=== PATIENT | female | born 1955 | race Hispanic/Latino ===

== ENCOUNTER 2023-03-23 11:14 | Emergency (ER) | payer SELFPAY ==
--- OUTSIDE RECORDS SUMMARY | 2023-03-23 11:18 | XMS REPORT | Continuity of Care Document ---
:1955 Author Organization [facility] t Address [address] [place] [address] [address] [place] [address] Care Team Providers Name Role Phone LUIS DANIEL VELAZQUEZ Primary Care Physician Unavailable CHARLIE RAMIREZ Attending Clinician Unavailable CHARLIE RAMIREZ Attending Clinician Unavailable CHARLIE RAMIREZ Admitting Clinician Unavailable Payers Payer Name Policy Type Policy Number Effective Date Expiration Date S [facility] MEDICARE PART A [id number] 2019 \T\ B 00:00:00 Problems This patient has no known problems. Allergies, Adverse Reactions, Alerts Allergy Allergy Status Severity Reaction(s) Onset Inactive Treating Comm ents Source Name Type Date Date Clinician NO KNOWN Drug Active Univers [facility] Medications Ordered Filled Start Stop Current Ordering Indication Dosage Frequency Signature Comments Components Source Medication Medication Date Date Medication? Clinician (SIG) Name Name &lt 2021-0 No 5 7- 00:00: 00 Dose 2021-0 No 5 Unknown 03-21 00:00: 00 Dose 2021-0 No Unknown 7- 00:00: 00 Dose 2021-0 No Unknown 7- 00:00: 00 amlodipine 2021-0 No 1mg 5 mg tablet 02-21 00:00: 00 amlodipine 2021-0 No 1mg 5 mg tablet 02-21 00:00: 00 Vital Signs Vital Name Observation Time Observation Value Comments Source BP Systolic 2022-03-21 14:01:00 158 mm[Hg] BP Diastolic 2022-03-21 14:01:00 91 mm[Hg] Weight Measured 2022-03-21 14:01:00 218.20 pounds Height Measured 2022-03-21 14:01:00 62.00 inches Body Temperature 2022-03-21 14:01:00 98.50 degrees Heart Rate 2022-03-21 14:01:00 Respiratory Rate 2022-03-21 14:01:00 BP Systolic 2022-02-21 15:08:00 174 mm[Hg] BP Diastolic 2022-02-21 15:08:00 101 mm[Hg] Weight Measured 2022-02-21 15:08:00 217.80 pounds Height Measured 2022-02-21 15:08:00 62.00 inches Body Temperature 2022-02-21 15:08:00 98.60 degrees Heart Rate 2022-02-21 15:08:00 90.00 /min Respiratory Rate 2022-02-21 15:08:00 BP Systolic 2020-02-08 16:11:00 165 mm[Hg] BP Diastolic 2020-02-08 16:11:00 82 mm[Hg] Weight Measured 2020-02-08 16:11:00 216.00 pounds Height Measured 2020-02-08 16:11:00 62.00 inches Body Temperature 2020-02-08 16:11:00 98.60 degrees Heart Rate 2020-02-08 16:11:00 81.00 /min Respiratory Rate 2020-02-08 16:11:00 18.00 /min Procedures Procedure Date / Time Performed Performing Clinician Sourc e 11430 Ekg W/ At Least 12 Leads W/ I 2022-02-22 00:00:00 r Plan of Care Planned Activity Planned Date Details Comments Source Goal Plan of Care Note [code = 59262-0] Goal Plan of Care Note [code = 34325-5] Goal Plan of Care Note [code = 49672-3] Goal Plan of Care Note [code = 89063-2] Goal Plan of Care Note [code = 90310-7] Goal Plan of Care Note [code = 45104-4] Goal Plan of Care Note [code = 88274-0] Goal Plan of Care Note [code = 89300-6] Goal Plan of Care Note [code = 61825-8] Goal Plan of Care Note [code = 36481-4] Goal Plan of Care Note [code = 78135-2] Goal Plan of Care Note [code = 81330-3] Goal Plan of Care Note [code = 31478-9] Goal Plan of Care Note [code = 49333-3] Goal Plan of Care Note [code = 52667-6] Goal Plan of Care Note [code = 22059-4] Goal Plan of Care Note [code = 38599-2] Goal Plan of Care Note [code = 02823-8] Goal Plan of Care Note [code = 00947-0] Encounters Start End Encounter Admission Attending Care Care Encounter Source Date/Time Date/Time Type Type Clinicians Facility Department ID 2023-02-06 2023-02-06 Outpatient [facility] [id number] [place] 16:27:09 16:27:09 0614 F Kieran 2022-06-27 2022-06-27 Outpatient [facility] [id number] [place] 13:37:21 13:37:21 1102 F Kieran 2022-03-21 2022-03-21 Outpatient [id number] 00:00:00 00:00:00 Visit [id number] [id number] 2022-02-21 2022-02-21 Outpatient [id number] 00:00:00 00:00:00 Visit [id number] 1baccd 2020-01-23 2020-01-23 Emergency X CHARLIE RAMIREZ [facility] 1 [id number] [facility] 17:28:12 19:37:00 CHARLIE RAMIREZ [facility] Results Test Description Test Time Test Comments Results Result Comments Source HEMOGLOBIN A1c 2022-03-01 17:31:25 Test Item Value Reference Range Interpretation Comme nts HEMOGLOBIN A1c (test code = 5.7 % 4.2-5.6 H UNLESS OTHERWISE INDICATED, ALL 09907) TESTING PERFORM ED ATCLINICAL PATHOLOGY LAB[facility] [employer] [address] [place] [address] ORTHOPEDIC PHYSICIAN: BERNARD GALLEGOS M.D. CLIA NUMBER [id number] CAP ACCREDITATION N O. [id number] HEMOGLOBIN [id number] 00:00:00 Test Item Value Reference Range Interpretation Comments HEMOGLOBIN A1c (test code = 31094) 5.7 % HEMOGLOBIN [id number] 00:00:00 Test Item Value Reference Range Interpretation Comments HEMOGLOBIN A1c (test code = 06138) 5.7 % CBC W/AUTO DIFF WITH [id number] 08:05:55 Test Item Value Reference Range Interpretation Comments WBC (test code = 8.2 K/UL 3.5-11.0 1001) RBC (test code = 4.25 M/UL 3.80-5.40 1002) HEMOGLOBIN (test code 12.9 G/DL 11.5-15.5 = 1003) HEMATOCRIT (test code 39.2 % 34.0-45.0 = 1004) MCV (test code = 92.2 fL 80.0-99.0 1005) MCH (test code = 30.4 PG 25.0-33.0 1006) MCHC (test code = 32.9 G/DL 31.0-36.0 1007) RDW (test code = 14.0 % 11.5-15.0 1038) NEUTROPHILS (test 53.9 % code = 1008) LYMPHOCYTES (test 35.8 % code = 1010) MONOCYTES (test code 7.7 % = 1011) EOSINOPHILS (test 1.8 % code = 1012) BASOPHILS (test code 0.6 % = 1013) IMMATURE GRANULOCYTES 0.2 % (test code = 1036) NUCLEATED RBCS (test 0.0 /100 WBC'S See_Comment [Aut omated code = 1065) message] The sy stem which generated this result transmitted reference range : 0.0. The refere nce range was not u sed to interpret th is result as normal/abnormal . PLATELET COUNT (test 205 K/UL 130-400 code = 1015) ABSOLUTE NEUTROPHILS 4.41 K/UL 1.50-7.50 (test code = 1066) ABSOLUTE LYMPHOCYTES 2.93 K/UL 1.00-4.00 (test code = 1067) ABSOLUTE MONOCYTES 0.63 K/UL 0.20-1.00 (test code = 1068) ABSOLUTE EOSINOPHILS 0.15 K/UL 0.00-0.50 (test code = 1040) ABSOLUTE BASOPHILS 0.05 K/UL 0.00-0.20 (test code = 1069) ABS IMMATURE 0.02 K/UL 0.00-0.10 GRANULOCYTES (test code = 1020) ABS NUCLEATED RBCS 0.00 K/UL 0.00-0.11 (test code = 19557) LIPID [id number] 05:47:52 Test Item Value Reference Range Interpretation Comments CHOLESTEROL (test 210 MG/DL <200 H code = 2210) TRIGLYCERIDES (test 120 MG/DL <150 code = 2232) HDL CHOLESTEROL (test 45 MG/DL >39 code = 2220) CALC LDL CHOL (test 141 MG/DL <100 H NOTE: C ALCULATED LDL code = 2237) IS BASED ON PADMINI-WEEKS METHOD WHICHINCLUDES ADJUSTABLE TRIGLYCERIDE:VL DL CHOLESTEROL RAT IO.THIS FACTOR VARIES B Y MEASURED TRIGLY CERIDE AND NON-HDLCHOL ESTEROL CONCENTRATIONS WITH INCREASED CALCU LATED LDL SEENIN HIGH ER TRIGLYCERIDE OR LOWER NON-HDL SPECIME NS. FOR MOREINFORMATION , SEE CLIENT ANNOUNCE MENT AT [email or web address] RISK RATIO LDL/HDL 3.13 RATIO <3.22 (test code = 2238) COMPREHENSIVE METABOLIC [id number] 05:47:52 Test Item Value Reference Range Interpretation Comments GLUCOSE (test code = 111 MG/DL 70-99 H 2216) BUN (test code = 17 MG/DL 8-23 2207) CREATININE (test 0.87 MG/DL 0.60-1.30 code = 2214) eGFR (2020 CKD-EPI) 73 >60 (test code = 00027) ML/MIN/1.73 CALC BUN/CREAT (test 20 RATIO 6-28 code = 2235) SODIUM (test code = 143 MEQ/L 990-485 1733) POTASSIUM (test code 4.1 MEQ/L 3.5-5.4 = 2227) CHLORIDE (test code 105 MEQ/L 95-107 = 221) CARBON DIOXIDE (test 27 MEQ/L 19-31 code = 2206) CALCIUM (test code = 9.5 MG/DL 8.5-10.5 2208) PROTEIN, TOTAL (test 6.9 G/DL 6.1-8.3 code = 2229) ALBUMIN (test code = 4.1 G/DL 3.5-5.2 2200) CALC GLOBULIN (test 2.8 G/DL 1.9-3.7 code = 2240) CALC A/G RATIO (test 1.5 RATIO 1.0-2.6 code = 2234) BILIRUBIN, TOTAL <0.2 MG/DL See_Comment [Automated message] (test code = 2207) The syste m which generated this result transmitted ref erence range: <=1.2. T he reference range was not used to int erpret this result as normal/abnormal . ALKALINE PHOSPHATASE 87 U/L 40-142 (test code = 2204) AST (test code = 18 U/L 9-40 2218) ALT (test code = 27 U/L 5-40 UNLESS OTH ERWISE 2219) INDICATED, ALL TESTING PERFORM ED [facility], [facility] [address] [place] [id number] [place] [address] DIRECTOR: BERNARD GALLEGOS M.D. CLIA NUMBER [id number] CAP ACCREDITATION N O. [id number] CBC W/AUTO [id number] 00:00:00 Test Item Value Reference Range Interpretation Comments WBC (test code = 1001) 8.2 K/UL RBC (test code = 1002) 4.25 M/UL HEMOGLOBIN (test code = 1003) 12.9 G/DL HEMATOCRIT (test code = 1004) 39.2 % MCV (test code = 1005) 92.2 fL MCH (test code = 1006) 30.4 PG MCHC (test code = 1007) 32.9 G/DL RDW (test code = 1038) 14.0 % NEUTROPHILS (test code = 1008) 53.9 % LYMPHOCYTES (test code = 1010) 35.8 % MONOCYTES (test code = 1011) 7.7 % EOSINOPHILS (test code = 1012) 1.8 % BASOPHILS (test code = 1013) 0.6 % IMMATURE GRANULOCYTES (test 0.2 % code = 1036) NUCLEATED RBCS (test code = 0.0 /100WBC'S 1065) PLATELET COUNT (test code = 205 K/UL 1015) ABSOLUTE NEUTROPHILS (test code 4.41 K/UL = 1066) ABSOLUTE LYMPHOCYTES (test code 2.93 K/UL = 1067) ABSOLUTE MONOCYTES (test code = 0.63 K/UL 1068) ABSOLUTE EOSINOPHILS (test code 0.15 K/UL = 1040) ABSOLUTE BASOPHILS (test code = 0.05 K/UL 1069) ABS IMMATURE GRANULOCYTES (test 0.02 K/UL code = 1020) ABS NUCLEATED RBCS (test code = 0.00 K/UL 61180) LIPID [id number] 00:00:00 Test Item Value Reference Range Interpretation Comments CHOLESTEROL (test code = 2210) 210 MG/DL TRIGLYCERIDES (test code = 2232) 120 MG/DL HDL CHOLESTEROL (test code = 2220) 45 MG/DL CALC LDL CHOL (test code = 2237) 141 MG/DL RISK RATIO LDL/HDL (test code = 3.13 RATIO 2238) COMPREHENSIVE METABOLIC [id number] 00:00:00 Test Item Value Reference Range Interpretation Comments GLUCOSE (test code = 2217) 111 MG/DL BUN (test code = 2208) 17 MG/DL CREATININE (test code = 2214) 0.87 MG/DL eGFR (2020 CKD-EPI) (test code 73 ML/MIN/1.73 = 59818) CALC BUN/CREAT (test code = 20 RATIO 2235) SODIUM (test code = 2231) 143 MEQ/L POTASSIUM (test code = 2228) 4.1 MEQ/L CHLORIDE (test code = 2215) 105 MEQ/L CARBON DIOXIDE (test code = 27 MEQ/L 2205) CALCIUM (test code = 2209) 9.5 MG/DL PROTEIN, TOTAL (test code = 6.9 G/DL 2228) ALBUMIN (test code = 2201) 4.1 G/DL CALC GLOBULIN (test code = 2.8 G/DL 0) CALC A/G RATIO (test code = 1.5 RATIO 4) BILIRUBIN, TOTAL (test code = <0.2 MG/DL 2206) ALKALINE PHOSPHATASE (test 87 U/L code = 2204) AST (test code = 2218) 18 U/L ALT (test code = 2219) 27 U/L CBC W/AUTO [id number] 00:00:00 Test Item Value Reference Range Interpretation Comments WBC (test code = 1001) 8.2 K/UL RBC (test code = 1002) 4.25 M/UL HEMOGLOBIN (test code = 1003) 12.9 G/DL HEMATOCRIT (test code = 1004) 39.2 % MCV (test code = 1005) 92.2 fL MCH (test code = 1006) 30.4 PG MCHC (test code = 1007) 32.9 G/DL RDW (test code = 1038) 14.0 % NEUTROPHILS (test code = 1008) 53.9 % LYMPHOCYTES (test code = 1010) 35.8 % MONOCYTES (test code = 1011) 7.7 % EOSINOPHILS (test code = 1012) 1.8 % BASOPHILS (test code = 1013) 0.6 % IMMATURE GRANULOCYTES (test 0.2 % code = 1036) NUCLEATED RBCS (test code = 0.0 /100WBC'S 1065) PLATELET COUNT (test code = 205 K/UL 1015) ABSOLUTE NEUTROPHILS (test code 4.41 K/UL = 1066) ABSOLUTE LYMPHOCYTES (test code 2.93 K/UL = 1067) ABSOLUTE MONOCYTES (test code = 0.63 K/UL 1068) ABSOLUTE EOSINOPHILS (test code 0.15 K/UL = 1040) ABSOLUTE BASOPHILS (test code = 0.05 K/UL 1069) ABS IMMATURE GRANULOCYTES (test 0.02 K/UL code = 1020) ABS NUCLEATED RBCS (test code = 0.00 K/UL 39743) CBC W/AUTO [id number] 00:00:00 Test Item Value Reference Range Interpretation Comments WBC (test code = 1001) 8.2 K/UL RBC (test code = 1002) 4.25 M/UL HEMOGLOBIN (test code = 1003) 12.9 G/DL HEMATOCRIT (test code = 1004) 39.2 % MCV (test code = 1005) 92.2 fL MCH (test code = 1006) 30.4 PG MCHC (test code = 1007) 32.9 G/DL RDW (test code = 1038) 14.0 % NEUTROPHILS (test code = 1008) 53.9 % LYMPHOCYTES (test code = 1010) 35.8 % MONOCYTES (test code = 1011) 7.7 % EOSINOPHILS (test code = 1012) 1.8 % BASOPHILS (test code = 1013) 0.6 % IMMATURE GRANULOCYTES (test 0.2 % code = 1036) NUCLEATED RBCS (test code = 0.0 /100WBC'S 1065) PLATELET COUNT (test code = 205 K/UL 1015) ABSOLUTE NEUTROPHILS (test code 4.41 K/UL = 1066) ABSOLUTE LYMPHOCYTES (test code 2.93 K/UL = 1067) ABSOLUTE MONOCYTES (test code = 0.63 K/UL 1068) ABSOLUTE EOSINOPHILS (test code 0.15 K/UL = 1040) ABSOLUTE BASOPHILS (test code = 0.05 K/UL 1069) ABS IMMATURE GRANULOCYTES (test 0.02 K/UL code = 1020) ABS NUCLEATED RBCS (test code = 0.00 K/UL 31065) LIPID [id number] 00:00:00 Test Item Value Reference Range Interpretation Comments CHOLESTEROL (test code = 2210) 210 MG/DL TRIGLYCERIDES (test code = 2232) 120 MG/DL HDL CHOLESTEROL (test code = 2220) 45 MG/DL CALC LDL CHOL (test code = 2237) 141 MG/DL RISK RATIO LDL/HDL (test code = 3.13 RATIO 2238) COMPREHENSIVE METABOLIC [id number] 00:00:00 Test Item Value Reference Range Interpretation Comments GLUCOSE (test code = 2217) 111 MG/DL BUN (test code = 2208) 17 MG/DL CREATININE (test code = 2214) 0.87 MG/DL eGFR (2020 CKD-EPI) (test code 73 ML/MIN/1.73 = 28410) CALC BUN/CREAT (test code = 20 RATIO 2235) SODIUM (test code = 2231) 143 MEQ/L POTASSIUM (test code = 2228) 4.1 MEQ/L CHLORIDE (test code = 2215) 105 MEQ/L CARBON DIOXIDE (test code = 27 MEQ/L 2205) CALCIUM (test code = 2209) 9.5 MG/DL PROTEIN, TOTAL (test code = 6.9 G/DL 2228) ALBUMIN (test code = 2201) 4.1 G/DL CALC GLOBULIN (test code = 2.8 G/DL 2240) CALC A/G RATIO (test code = 1.5 RATIO 2234) BILIRUBIN, TOTAL (test code = <0.2 MG/DL 2206) ALKALINE PHOSPHATASE (test 87 U/L code = 2204) AST (test code = 2218) 18 U/L ALT (test code = 2219) 27 U/L CBC W/AUTO [id number] 00:00:00 Test Item Value Reference Range Interpretation Comments WBC (test code = 1001) 8.2 K/UL RBC (test code = 1002) 4.25 M/UL HEMOGLOBIN (test code = 1003) 12.9 G/DL HEMATOCRIT (test code = 1004) 39.2 % MCV (test code = 1005) 92.2 fL MCH (test code = 1006) 30.4 PG MCHC (test code = 1007) 32.9 G/DL RDW (test code = 1038) 14.0 % NEUTROPHILS (test code = 1008) 53.9 % LYMPHOCYTES (test code = 1010) 35.8 % MONOCYTES (test code = 1011) 7.7 % EOSINOPHILS (test code = 1012) 1.8 % BASOPHILS (test code = 1013) 0.6 % IMMATURE GRANULOCYTES (test 0.2 % code = 1036) NUCLEATED RBCS (test code = 0.0 /100WBC'S 1065) PLATELET COUNT (test code = 205 K/UL 1015) ABSOLUTE NEUTROPHILS (test code 4.41 K/UL = 1066) ABSOLUTE LYMPHOCYTES (test code 2.93 K/UL = 1067) ABSOLUTE MONOCYTES (test code = 0.63 K/UL 1068) ABSOLUTE EOSINOPHILS (test code 0.15 K/UL = 1040) ABSOLUTE BASOPHILS (test code = 0.05 K/UL 1069) ABS IMMATURE GRANULOCYTES (test 0.02 K/UL code = 1020) ABS NUCLEATED RBCS (test code = 0.00 K/UL 85829) HEMOGLOBIN [id number] 00:00:00 Test Item Value Reference Range Interpretation Comments HEMOGLOBIN A1c (test code = 23706) 5.4 % HEMOGLOBIN [id number] 00:00:00 Test Item Value Reference Range Interpretation Comments HEMOGLOBIN A1c (test code = 66043) 5.4 % HEMOGLOBIN [id number] 00:00:00 Test Item Value Reference Range Interpretation Comments HEMOGLOBIN A1c (test code = 99747) 5.4 % HEMOGLOBIN [id number] 00:00:00 Test Item Value Reference Range Interpretation Comments HEMOGLOBIN A1c (test code = 24573) 5.4 % COMPREHENSIVE METABOLIC [id number] 00:00:00 Test Item Value Reference Range Interpretation Comments GLUCOSE (test code = 2217) 109 MG/DL BUN (test code = 2208) 12 MG/DL CREATININE (test code = 2214) 0.84 MG/DL eGFR AMER. (test code 85 ML/MIN/1.73 = 03671) eGFR NON- AMER. (test 73 ML/MIN/1.73 code = 41122) CALC BUN/CREAT (test code = 14 RATIO 2234) SODIUM (test code = 2231) 140 MEQ/L POTASSIUM (test code = 2228) 4.3 MEQ/L CHLORIDE (test code = 2215) 105 MEQ/L CARBON DIOXIDE (test code = 24 MEQ/L 2205) CALCIUM (test code = 2209) 8.9 MG/DL PROTEIN, TOTAL (test code = 7.2 G/DL 2228) ALBUMIN (test code = 2201) 4.4 G/DL CALC GLOBULIN (test code = 2.8 G/DL 2239) CALC A/G RATIO (test code = 1.6 RATIO 2233) BILIRUBIN, TOTAL (test code = 0.2 MG/DL 2206) ALKALINE PHOSPHATASE (test 94 U/L code = 220) AST (test code = 2218) 20 U/L ALT (test code = 2219) 27 U/L CBC W/AUTO [id number] 00:00:00 Test Item Value Reference Range Interpretation Comments WBC (test code = 1001) 6.7 K/UL RBC (test code = 1002) 4.22 M/UL HEMOGLOBIN (test code = 1003) 13.5 G/DL HEMATOCRIT (test code = 1004) 38.9 % MCV (test code = 1005) 92.2 fL MCH (test code = 1006) 32.0 PG MCHC (test code = 1007) 34.7 G/DL RDW (test code = 1038) 13.4 % NEUTROPHILS (test code = 1008) 60.3 % LYMPHOCYTES (test code = 1010) 29.3 % MONOCYTES (test code = 1011) 7.5 % EOSINOPHILS (test code = 1012) 2.3 % BASOPHILS (test code = 1013) 0.6 % PLATELET COUNT (test code = 1015) 212 K/UL CBC W/AUTO [id number] 00:00:00 Test Item Value Reference Range Interpretation Comments WBC (test code = 1001) 6.7 K/UL RBC (test code = 1002) 4.22 M/UL HEMOGLOBIN (test code = 1003) 13.5 G/DL HEMATOCRIT (test code = 1004) 38.9 % MCV (test code = 1005) 92.2 fL MCH (test code = 1006) 32.0 PG MCHC (test code = 1007) 34.7 G/DL RDW (test code = 1038) 13.4 % NEUTROPHILS (test code = 1008) 60.3 % LYMPHOCYTES (test code = 1010) 29.3 % MONOCYTES (test code = 1011) 7.5 % EOSINOPHILS (test code = 1012) 2.3 % BASOPHILS (test code = 1013) 0.6 % PLATELET COUNT (test code = 1015) 212 K/UL CBC W/AUTO [id number] 00:00:00 Test Item Value Reference Range Interpretation Comments WBC (test code = 1001) 6.7 K/UL RBC (test code = 1002) 4.22 M/UL HEMOGLOBIN (test code = 1003) 13.5 G/DL HEMATOCRIT (test code = 1004) 38.9 % MCV (test code = 1005) 92.2 fL MCH (test code = 1006) 32.0 PG MCHC (test code = 1007) 34.7 G/DL RDW (test code = 1038) 13.4 % NEUTROPHILS (test code = 1008) 60.3 % LYMPHOCYTES (test code = 1010) 29.3 % MONOCYTES (test code = 1011) 7.5 % EOSINOPHILS (test code = 1012) 2.3 % BASOPHILS (test code = 1013) 0.6 % PLATELET COUNT (test code = 1015) 212 K/UL COMPREHENSIVE METABOLIC [id number] 00:00:00 Test Item Value Reference Range Interpretation Comments GLUCOSE (test code = 2217) 109 MG/DL BUN (test code = 2208) 12 MG/DL CREATININE (test code = 2214) 0.84 MG/DL eGFR AMER. (test code 85 ML/MIN/1.73 = 54946) eGFR NON- AMER. (test 73 ML/MIN/1.73 code = 93241) CALC BUN/CREAT (test code = 14 RATIO 2235) SODIUM (test code = 2231) 140 MEQ/L POTASSIUM (test code = 2228) 4.3 MEQ/L CHLORIDE (test code = 2215) 105 MEQ/L CARBON DIOXIDE (test code = 24 MEQ/L 2205) CALCIUM (test code = 2209) 8.9 MG/DL PROTEIN, TOTAL (test code = 7.2 G/DL 2229) ALBUMIN (test code = 2201) 4.4 G/DL CALC GLOBULIN (test code = 2.8 G/DL 2240) CALC A/G RATIO (test code = 1.6 RATIO 4) BILIRUBIN, TOTAL (test code = 0.2 MG/DL 2206) ALKALINE PHOSPHATASE (test 94 U/L code = 2204) AST (test code = 2218) 20 U/L ALT (test code = 2219) 27 U/L CBC W/AUTO [id number] 00:00:00 Test Item Value Reference Range Interpretation Comments WBC (test code = 1001) 6.7 K/UL RBC (test code = 1002) 4.22 M/UL HEMOGLOBIN (test code = 1003) 13.5 G/DL HEMATOCRIT (test code = 1004) 38.9 % MCV (test code = 1005) 92.2 fL MCH (test code = 1006) 32.0 PG MCHC (test code = 1007) 34.7 G/DL RDW (test code = 1038) 13.4 % NEUTROPHILS (test code = 1008) 60.3 % LYMPHOCYTES (test code = 1010) 29.3 % MONOCYTES (test code = 1011) 7.5 % EOSINOPHILS (test code = 1012) 2.3 % BASOPHILS (test code = 1013) 0.6 % PLATELET COUNT (test code = 1015) 212 K/UL
[2023-03-23] MEDS ORDERED: ONDANSETRON 4 MG (ODT) TAB ONE (12:29)
--- NOTE | 2023-03-23 13:28 | RAD REPORT ---
EXAM DESCRIPTION: RAD - Abdomen 1 View (KUB) - 03/23/2023 1:19 pm CLINICAL HISTORY: CONSTIPATION Pain COMPARISON: No comparisons FINDINGS: The bowel gas pattern is non-obstructive. No evidence of free air or pneumatosis. No suspi cious calcifications. No significant bony findings. Cholecystectomy. Moderate constipation. IMPRESSION: Moderate constipation.
[2023-03-23] MEDS ORDERED: MAGNESIUM CITRATE 300 ML BOT ONE (14:07)
[2023-03-23] MEDS ORDERED: FLEET ENEMA ADULT PR ONE (15:53)
--- NOTE | 2023-03-23 16:13 | EDPHYS ---
Physician Documentation [facility] Name: Licha Shultz Age: 67 yrs Sex: Female : 1955 Arrival Date: 03/23/2023 Time: 11:14 Bed 4 Private MD: ED Physician Jasbir Vazquez HPI: 03/23 11:30 This 67 yrs old Female presents to ER via Ambulatory with complaints of aj3 Constipation. 11:30 Patient reports having constipation intermittently over the last 2 weeks. She reports aj3 that she has had small hard stools coming out but she feels like she has impacted. She recently started taking stool softener yesterday but has not had any relief yet. She does report some nausea but denies any vomiting, fever, chills, shortness of breath or urinary symptoms.. Historical: - Allergies: 11:25 No Known Allergies; ll1 - PMHx: 11:25 Diabetes mellitus; Borderline (no meds); ll1 - PSHx: 11:25 Cholecystectomy; Tonsillectomy; ll1 - Immunization history:: Client reports having NOT received the Covid vaccine. - Social history:: Smoking status: Patient denies any tobacco usage or history of. ROS: 11:30 Constitutional: Negative for fever, chills, and weight loss, Cardiovascular: Negative aj3 for chest pain, palpitations, and edema, Respiratory: Negative for shortness of breath, cough, wheezing, and pleuritic chest pain, MS/Extremity: Negative for injury and deformity, Skin: Negative for injury, rash, and discoloration, Neuro: Negative for syncope, headache, weakness, numbness, tingling, and seizure. 11:30 Abdomen/GI: Positive for nausea, constipation, black/tarry stool, rectal bleeding. Exam: 11:30 Constitutional: This is a well developed, well nourished patient who is awake, alert, aj3 and in no acute distress. Cardiovascular: Regular rate and rhythm with a normal S1 and S2. No gallops, murmurs, or rubs. Normal PMI, no JVD. No pulse deficits. Respiratory: Lungs have equal breath sounds bilaterally, clear to auscultation and percussion. No rales, rhonchi or wheezes noted. No increased work of breathing, no retractions or nasal flaring. Abdomen/GI: Soft, non-tender, with normal bowel sounds. No distension or tympany. No guarding or rebound. No evidence of tenderness throughout. Skin: Warm, dry with normal turgor. Normal color with no rashes, no lesions, and no evidence of cellulitis. MS/ Extremity: Pulses equal, no cyanosis. Neurovascular intact. Full, normal range of motion. Neuro: Awake and alert, GCS 15, oriented to person, place, time, and situation. Motor strength 5/5 in all extremities. Sensory grossly intact. Normal gait. Vital Signs: 11:26 BP 196 / 93; Pulse 77; Resp 18; Temp 98; Pulse Ox 98% on R/A; Height 5 ft. 2 in. ; Pain ll1 2/10; 14:03 BP 168 / 86; Pulse 76; Resp 15; Pulse Ox 99% ; hb 16:00 BP 156 / 82; Pulse 77; Resp 15; Pulse Ox 99% ; hb 11:26 Pain Scale: Adult ll1 MDM: 11:30 Differential diagnosis: Constipation, fecal impaction, bowel obstruction. Data aj3 reviewed: vital signs, nurses notes, radiologic studies, plain films. Independent interpretation of the following test(s) in the Emergency Department X-Ray: My interpretation is No bowel obstruction noted. Test considered but Not performed: Labs: Labs not warranted today.. Historians other than the Patient: Daughter/Son: . Counseling: I had a detailed discussion with the patient and/or guardian regarding: the historical points, exam findings, and any diagnostic results supporting the discharge/admit diagnosis, radiology results, the need for outpatient follow up, to return to the emergency department if symptoms worsen or persist or if there are any questions or concerns that arise at home. ED course: Patient here with constipation for the past 2 weeks. X-ray was negative for bowel obstruction or concern for fecal impaction. She was given mag citrate and enema with minimal relief. We will discharge her home with lactulose and have her follow-up with PCP and/or director staffing. ER return precautions given. 12:02 Patient medically screened. aj3 03/23 12:12 Order name: Abdomen 1 View (KUB) XRAY; Complete Time: 13:43 aj3 Administered Medications: 14:01 Drug: Magnesium Citrate PO Liquid 300 ml Route: PO; hb 17:32 Follow up: Response: No adverse reaction hb 16:07 Drug: Fleet Enema [place] 133 ml Route: [place]; hb 17:31 Follow up: Response: No adverse reaction hb 17:32 Not Given (Patient Refused): Ondansetron PO 4 mg PO once hb Disposition: 03/24 13:37 Co-signature as Attending Physician, Jasbir Vazquez DO I was immediately available on-site ms3 in the Emergency Department for consultation in the care of the patient. Disposition Summary: 03/23/23 16:12 Discharge Ordered Location: Home aj3 Problem: new aj3 Symptoms: have improved aj3 Condition: Stable aj3 Diagnosis - Constipation, unspecified aj3 Followup: aj3 - With: Emergency Department - When: - Reason: Worsening of condition Followup: aj3 - With: Private Physician - When: - Reason: Recheck today's complaints, Re-evaluation by your physician Discharge Instructions: - Discharge Summary Sheet aj3 - Constipation, Adult aj3 Forms: - Medication Reconciliation Form aj3 - Thank You Letter aj3 - Antibiotic Education aj3 - Prescription Opioid Use aj3 - Patient Portal Instructions aj3 Prescriptions: - Lactulose 10 gram/15 mL Oral Solution - take 30 milliliters by ORAL route once daily; 300 milliliter; Refills: 0, aj3 Product Selection Permitted Signatures: Dispatcher [employer] Ronit Patel RN Paul Arevalo RN RN ll1 Jasbir Vazquez DO DO ms3 Nicole Rossi, [employer] aj3
--- NOTE | 2023-03-23 16:13 | ER ---
Nurse's Notes [facility] Name: Licha Shultz Age: 67 yrs Sex: Female : 1955 Arrival Date: 03/23/2023 Time: 11:14 Bed 4 Private MD: Diagnosis: Constipation, unspecified Presentation: 03/23 11:26 Chief complaint: Patient states: Constipation since 03/02/23. + abdominal discomfort. ll1 Took a laxative yesterday. No known fevers. Coronavirus screen: Vaccine status: Patient reports being unvaccinated. Client denies travel out of the [place] in the last 14 days. At this time, the client does not indicate any symptoms associated with coronavirus-19. Ebola Screen: Patient denies travel to an Ebola-affected area in the 21 days before illness onset. Initial Sepsis Screen: Does the patient meet any 2 criteria? No. Patient's initial sepsis screen is negative. Does the patient have a suspected source of infection? Yes: Acute abdominal pain. Risk Assessment: Do you want to hurt yourself or someone else? Patient reports no desire to harm self or others. Onset of symptoms was March 02, 2023. 11:26 Method Of Arrival: Ambulatory ll1 11:26 Acuity: EDGAR 3 ll1 Triage Assessment: 11:28 General: Appears uncomfortable, Behavior is calm, cooperative, appropriate for age. ll1 Pain: Complains of pain in abdomen Pain currently is 2 out of 10 on a pain scale. Quality of pain is described as aching, tender. GI: Reports lower abdominal pain, upper abdominal pain, bloating, constipation, cramping. Historical: - Allergies: 11:25 No Known Allergies; ll1 - PMHx: 11:25 Diabetes mellitus; Borderline (no meds); ll1 - PSHx: 11:25 Cholecystectomy; Tonsillectomy; ll1 - Immunization history:: Client reports having NOT received the Covid vaccine. - Social history:: Smoking status: Patient denies any tobacco usage or history of. Screenin:11 [facility] ED Fall Risk Assessment (Adult) Score/Fall Risk Level 0 - 2 = Low Risk. Abuse me1 screen: Denies threats or abuse. Nutritional screening: No deficits noted. Tuberculosis screening: No symptoms or risk factors identified. Assessment: 13:11 General: Appears in no apparent distress. comfortable, obese, well groomed, well me1 developed, Behavior is calm, cooperative, appropriate for age, Denies fever, feeling ill, fatigue, chills. Pain: Denies pain. Neuro: Level of Consciousness is Oriented to person, place, time, situation. Cardiovascular: Capillary refill < 3 seconds is brisk fingers toes Patient's skin is warm and dry. Respiratory: Respiratory effort is even, unlabored, Respiratory pattern is regular, symmetrical. GI: Reports constipation. :. 14:02 Reassessment: Patient appears in no apparent distress at this time. Patient and/or hb family updated on plan of care and expected duration. Pain level reassessed. Patient is alert, oriented x 3, equal unlabored respirations, skin warm/dry/pink. 14:50 Reassessment: Patient appears in no apparent distress at this time. Patient and/or hb family updated on plan of care and expected duration. Pain level reassessed. Patient is alert, oriented x 3, equal unlabored respirations, skin warm/dry/pink. 16:00 Reassessment: Patient appears in no apparent distress at this time. Patient and/or hb family updated on plan of care and expected duration. Pain level reassessed. Patient is alert, oriented x 3, equal unlabored respirations, skin warm/dry/pink. 17:00 Reassessment: Patient appears in no apparent distress at this time. Patient and/or hb family updated on plan of care and expected duration. Pain level reassessed. Patient is alert, oriented x 3, equal unlabored respirations, skin warm/dry/pink. Vital Signs: 11:26 BP 196 / 93; Pulse 77; Resp 18; Temp 98; Pulse Ox 98% on R/A; Height 5 ft. 2 in. ; Pain ll1 2/10; 14:03 BP 168 / 86; Pulse 76; Resp 15; Pulse Ox 99% ; hb 16:00 BP 156 / 82; Pulse 77; Resp 15; Pulse Ox 99% ; hb 11:26 Pain Scale: Adult ll1 ED Course: 11:17 Patient arrived in ED. ts1 11:19 Nicole Rossi NP is PHCP. aj3 11:19 Jasbir Vazquez DO is Attending Physician. aj3 11:25 Arm band placed on Patient placed in an exam room, on a stretcher. ll1 11:28 Triage completed. ll1 13:11 Patient has correct armband on for positive identification. Bed in low position. Call me1 light in reach. Side rails up X 1. Provided Education on: POC, verbalized understanding.. 13:11 No provider procedures requiring assistance completed. me1 13:20 Abdomen 1 View (KUB) XRAY In Process Unspecified. EDMS 14:50 Ronit Winn, RN is Primary Nurse. hb 17:32 Patient did not have IV access during this emergency room visit. hb Administered Medications: 14:01 Drug: Magnesium Citrate PO Liquid 300 ml Route: PO; hb 17:32 Follow up: Response: No adverse reaction hb 16:07 Drug: Fleet Enema [place] 133 ml Route: [place]; hb 17:31 Follow up: Response: No adverse reaction hb 17:32 Not Given (Patient Refused): Ondansetron PO 4 mg PO once hb Medication: 13:11 VIS not applicable for this client. wa1 Outcome: 16:12 Discharge ordered by . [facility] 17:32 Discharged to home ambulatory, with family. hb 17:32 Condition: stable 17:32 Discharge instructions given to patient, Instructed on discharge instructions, follow up and referral plans. medication usage, Demonstrated understanding of instructions, follow-up care, medications, Prescriptions given X 1. 17:33 Patient left the ED. Signatures: Dispatcher [employer] EDNJ Ronit Winn, RN ASIF Paul Ro RN RN ll1 Nicole Rossi, [employer]DER [employer] aj3 Nafisa Miles PAS PAS ts1 Lianet Taylor RN RN wa1
[2023-03-23 17:48] VITALS: TEMP 98
[2023-03-23 17:50] VITALS: O2SAT 99
[2023-03-23 17:52] VITALS: BP 156/82
== END 2023-03-23 17:33 | disposition home or self-care (01) ==
LOC: ER 11:14
DX: K59.00 Constipation, unspecified (principal)
CPT/HCPCS: 74018; 99283; Q0162